=== PATIENT | female | born 1980 ===

== ENCOUNTER 2020-10-30 09:35 | Inpatient (IN) | payer OTHER ==
[2020-10-30] VITALS (31 sets, daily range): BP systolic 92–133; BP diastolic 53–75; PULSE 67–116; TEMP 98.1–98.9
[~2020-10-30] VITALS: Ht 152.4 cm; Wt 76.4 kg
[2020-10-30] MEDS ORDERED: COLACE 100100 MG/CAP PO (10:09)
[2020-10-30] MEDS ORDERED: SYNTHROID 0.0.025 MG PO (10:09)
[2020-10-30] MEDS ORDERED: PRENATAL TABLET PO (10:10)
--- NOTE | 2020-10-30 10:30 | NUR ---
0948- Pt arrives on unit via wheelchair. Pt into bathroom to change into gown. 0955- Pt into bed. EFM and TOCO on and tracing well. O2 sat monitor on and tracing maternal HR. VSS. Assessment completed. Pt states she thinks her water may have broke at 0600 this morning when her UCs started. States she has had small amount of vaginal bleeding. +FM per Pt. 1017- Amniotrace positive.
[2020-10-30 10:50] LABS: BASO % 0.3 % (0.0-2.0); EOS # 0.1 (0.0-0.7); EOS % 0.5 % (0-4.0); GRAN # 9.6 (1.4-6.5); GRAN % 85.3 % (42.2-75.2); HEMATOCRIT 38.3 % (37.0-47.0); HEMOGLOBIN 12.4 g/dl (12.5-16.0); LYMPH # 0.7 (1.2-3.4); LYMPH % 5.9 % (20.0-51.0); MEAN CELL VOLUME 89 fl (80.0-100.0); MEAN CORPUSCULAR HEMOGLOBIN 29 pg (27.0-31.0); MEAN CORPUSCULAR HGB CONC 32 g/dl (33.0-37.0); MEAN PLATELET VOLUME 10.1 fl (7.4-10.4); MONO # 0.9 (0.1-0.6); MONO % 7.6 % (1.7-9.3); PLATELET COUNT 260 K/mm3 (130-400); RED BLOOD COUNT 4.33 M/mm3 (4.10-5.30); REDCELL DISTRIBUTION WIDTH-CV 13.4 % (11.5-14.5)
--- NOTE | 2020-10-30 11:00 | NUR ---
1050- Pt assisted to sittin on side of bed for epidural placement. Iris, NICOLE at bedside. 1100- Test dose, see anesthesia record. 1104- Pt assisted to semi-fowlers with WL. EFM and TOCO adjusted. Pt tolerated well.
--- NOTE | 2020-10-30 14:59 | NUR ---
1345- Pt begins pushing with UCs. RN remains at bedside, coaching Pt. 1443- Dr Terrazas at bedside, evaluates pushing. VORB to start Pitocin at 2mu. Pt continues pushing well wt UCs. remains on unit. 1450- Fofana removed without difficulty. 1454- MD and Keaton, Nursery RN called to bedside. Pt and room prepped for delivery. Pt continues pushing with UCs. 1459- of viable male infant, tended to by Nursery RN. Pitocin off. 1503- Spontaneous delivery of placenta. Pitocin restarted at 333mu. Fundus massaged to firm by . Lacerations repaired. Pericare completed. Ice pack and clean chux under Pt. Pt repositioned to high fowlers. Infant [id number].
--- NOTE | 2020-10-30 18:30 | NUR ---
Report received. Resting on bench at this time. Updated [place] and reviewed POC.
[2020-10-31 04:45] VITALS: BP 105/65; PULSE 75; TEMP 97.8
[2020-10-31 07:45] VITALS: BP 97/62; PULSE 70; TEMP 97.7
[2020-10-31] MEDS ORDERED: IBU800 M1 PO (12:13)
[2020-10-31 13:20] VITALS: BP 97/68; PULSE 85; TEMP 97.9
[2020-10-31 17:10] VITALS: BP 97/58; PULSE 83; TEMP 97.9
[2020-10-31 19:00] VITALS: BP 109/66; PULSE 84; TEMP 97.9
[2020-11-01 07:15] VITALS: BP 98/63; PULSE 83; TEMP 97.7
--- NOTE | 2020-11-01 07:36 | NUR ---
0615 RECEIVED REPORT AND TOOK OVER CARE. PATIENT NOT IN PAIN. SCHEDULED TO FEED AT 0700.
--- NOTE | 2020-11-01 15:14 | NUR ---
Patient is 20 days past COVID pos test. Clinically improving after ICU and Medical Unit cares and prescribed treatment regimens. After consultation with Dr. Guevara will discontinue Contact/Droplet Covid precautions today. Patient to be moved to clean room when available. Bernardino Holloway RN
[2020-11-01 17:30] VITALS: BP 128/72; PULSE 66; TEMP 98.2
== END 2020-11-01 20:00 | disposition home or self-care (01) | DRG 806 ==
LOC: LDRO 09:35 → LDR 09:50 → LDRO 10:19 → OB 10:33 → LDR 10:33 → OB 18:00
PROVIDERS: Student in an Organized Health Care Education/Training Program; ADMIT Obstetrics & Gynecology
PROC: 10E0XZZ Delivery of Products of Conception, External Approach (ICD-10-PCS; principal; 2020-10-30)
PROC: 0HQ9XZZ Repair Perineum Skin, External Approach (ICD-10-PCS; 2020-10-30)
DX: O99.344 Other mental disorders complicating childbirth (principal); O72.1 Other immediate postpartum hemorrhage; Z37.0 Single live birth; O99.284 Endocrine, nutritional and metabolic diseases complicating childbirth; O70.0 First degree perineal laceration during delivery; E03.9 Hypothyroidism, unspecified; F31.9 Bipolar disorder, unspecified; O99.214 Obesity complicating childbirth; E66.9 Obesity, unspecified; O69.1XX0 Labor and delivery complicated by cord around neck, with compression, not applicable or unspecified; Z3A.37 37 weeks gestation of pregnancy
CPT/HCPCS: J2210; J2590; J7120

== ENCOUNTER → 2020-11-16 | Outpatient (CLI) | payer OTHER ==
[~2020-11-16] MED LIST: COLACE 100100 MG/CAP PO; IBU800 M1 PO; PRENATAL TABLET PO; SYNTHROID 0.0.025 MG PO
--- NOTE | 2020-11-16 13:10 | NUR ---
Pt, Ricardo Kaye, presents for outpatient consult with 17 day old baby boy, Bereket Kaye and her spouse, Natalee, for a evaluation. Pt states she does not feel baby latching widely. She is also using bottle feedings because she is not sure how much he is drinking from the breast. Bereket was born on [birth year] and weighed 6# 11.9oz (3060 gms). He was re-hospitalized for hyperbilirubinemia. Pt was pumping and bottle feeding at that time. Pt reports weights at Dr. Abreu's office to be 11/03- 2.92kg; 11/10- 2.77kg. Weight per the Pediatric are: 11/01- 6#7oz; 11/03- 6#12oz; 11/10- #10oz. Today Bereket weighs 7#3.3oz (3.27kg), a gain of 9oz (500gms) in 6 days. The family reports that Bereket breastfeeds 8+ times per day and is bottle fed EBM or formula after because they feel he is still hungry. In the last 24 hours Bereket had 210ml formula and 160ml of EBM. Pt latches Bereket on the right breast, he does not open widely so pt is instructed on how to get his lips flanged and jaw open wider after he is latch. She states this is more comfortable. She is able to duplicate this with latching on the left breast. After Bereket has a weight gain of 1.7oz (46gms). Pt pumps and collects about 5ml. Bereket drinks 50 ml from a bottle of formula. Discussion: LC discussed that by increase pumping frequency to each feeding this may increase her overall milk supply. They can continue to provide 1-2oz EBM/formula at each feeding. Decrease formula portion as milk supply increases. POC: Pt indicates she will try 3-step feeding plan to breast/bottle/pump. Information about herbal supplements and a handout re: increasing milk supply provided. F/U: Pending pt's report of milk supply status. Questions invited and answered.
== END ==
LOC: LDRO 12:18 → LAC 12:29 → LDRO 12:29
DX: Z39.1 Encounter for care and examination of lactating mother (principal); Z71.89 Other specified counseling